=== PATIENT | female | born 1970 | race Caucasian/White ===

== ENCOUNTER → 2017-08-01 | Day surgery (SDC) | payer BC ==
[2017-07-30 16:57] LABS: Absolute Monocytes 0.7 K/uL (0.1-1.3); Absolute Neutrophil 4.3 K/uL (1.8-8.0); Basophils % 0.6 % (0-1.3); Eosinophils % 2.4 % (0-4.4); Hematocrit 29.6 % (36.0-45.0); MCH 20.1 pg (27.0-35.0); MPV 8.8 fL (7.6-11.3); Monocytes % 9.2 % (3.3-12.3); RBC Red Blood Cell Count 4.48 M/uL (3.86-4.86)
[2017-07-30 16:58] LABS: Urine Appearance CLEAR; Urine Blood 2+ (NEG); Urine Color YELLOW; Urine Glucose NEGATIVE (NEG); Urine Protein NEGATIVE (NEG); Urine Specific Gravity >=1.030 (1.005-1.030)
[2017-07-30 17:02] LABS: Urine Microscopic Reflex ORDER UMIC
[2017-07-30 17:12] LABS: Urine Bilirubin 1+ (NEG)
[2017-07-30 17:24] LABS: Potassium 3.7 mEq/L (3.6-5.0)
[2017-07-30 17:34] LABS: Urine Bacteria <20 /HPF (<20); Urine Culture Reflex Order REFLEXED; Urine RBC <5 /HPF (NONE SEEN)
[2017-07-30 17:50] LABS: Anisocytosis 3+; Blood Morphology Comment NOTED (NOT SEEN); Hypochromasia 1+; Platelet Estimate ADEQ; Urine White Blood Cell Casts OK
[~2017-08-01] MED LIST: ALBUTEROL 2.5 MG/3 ML NEB SOL ONE; CEFAZOLIN/SWI 1gm 1 GM/10 ML SYR ONE; DEXAMETHASONE 10 MG/ML VIAL ONE; FENTANYL CITR 100 MCG/2 ML ONE; FENTANYL CITR 250 MCG/5 ML ONE; GLYCOPYRROLATE 0.2 MG/ML SYR ONE; KETOROLAC 30 MG/ML INJ ONE; LIDOCAINE 2% MPF 5 ML VIAL ONE; MEPERIDINE HCL 25 MG/0.5 ML ONE; MEPERIDINE HCL 50 MG/ML AMP ONE; MIDAZOLAM HCL 2 MG/2 ML INJ ONE; ONDANSETRON 4 MG/2 ML VIAL ONE; PROPOFOL 200 MG/20 ML VIAL IV ONE; ROCURONIUM 50 MG/5 ML VIAL IV ONE; Ringers Lactate 1,000 ML IV ONE; SCOPOLAMINE HYDROBROMIDE PATCH TD ONE
[2017-08-01 06:28] LABS: Specific Gravity 1.025 (1.005-1.030)
[2017-08-01] MEDS: CEFAZOLIN/SWI 2gm 2 GM/20 ML SYR IV SCH ×2 (07:27→08:20)
[2017-08-01] MEDS: NA CHLORIDE 0.9% 1,000 ML ONE ×2 (07:28→08:20)
[2017-08-01] MEDS: MORPHINE 10 MG/ML VIAL ONE ×5 (12:31→13:04)
[2017-08-01 16:15] VITALS: BP 132/84; TEMP 98; O2SAT 97
--- NOTE | 2017-08-01 22:57 | OP ---
Date of Procedure: 08/01/2017 Surgeon: Evita Bob MD [employer] Laborer: Tiffani Ulloa. Preoperative Diagnoses: Heavy menstrual bleeding, fibroids, anemia. Postoperative Diagnoses: Heavy menstrual bleeding, fibroids, anemia. Procedures Performed: Total laparoscopic hysterectomy, bilateral salpingectomy, right oophorectomy, cystoscopy. Anesthesia: General. Estimated Blood Loss: 100. Specimens: Uterus bilateral tubes and right ovary. Complications: No complications. Drains: No drains. Condition: Stable. Indications: The patient is a 47-year-old with heavy bleeding, found to have fibroids. Her fibroids had grown from 3.5 cm to almost 7 cm over the period of 4 years. She has been having increasing ble eding and she was seen in the ER for severe anemia and transfused. She has been sampled and there wa s no evidence of any atypia or malignancy. She received a Depo shot at the ER and still continues to bleed with all the heavy bleeding has resolved. So, offered Depot medroxyprogesterone on a long-ter m basis, myomectomy, uterine artery embolization, and hysterectomy. After discussing benefits and ri sks, recurrence rates of her problem after all these and very small risk of leiomyosarcoma, proceeded to consent the patient for a laparoscopic hysterectomy, bilateral salpingectomy, possible BSO as nee ded. Procedure In Detail: After informed consent was verified, the patient was taken to the OR, placed in a supine fashion on the operating table. After general anesthesia was given, she was placed in a do rsal lithotomy position. Ancef 2 g were given preop and SCDs were started. After the patient was ex amined, uterus was found to be about 12-week size with good mobility. However, the patient had very small pelvis with a narrow vagina, so plan was to morcellate in a bag through an abdominal incision. Abdomen, vulva, vagina, and perineum were prepped and draped in a sterile fashion. Rivera was placed to drain the bladder and a large VCare introduced into the uterus and fixed in place. This area was then draped. Rivera attached for retrograde filling. A 1 cm infraumbilical incision was made with the scalpel using the open laparoscopy technique. Fasci a was incised and tagged. Domingo introduced. Site of entry was checked and was normal. Liver and g allbladder appeared to be unremarkable. Omentum and upper abdominal surfaces were unremarkable. 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 In the pelvic cavity as well, there were adhesions of the colon to the right ovary, extremely dense and also to the left lateral wall. A 10 mm suprapubic and two 5 mm right and left lower quadra nt ports were placed under direct vision. Thorough evaluation of the pelvic cavity was done. There was no evidence of any endometriosis. As the adhesions were seen, sharp scissors were taken and were used to take down the adhesions of the ovary from the colon and then bipolar LigaSure was also used for hemostasis. Once all the adhesions were taken down, then ovary was inspected, completely unremar kable. The left tube also had some adhesions. These were taken down as well. The right ovary and t ube were completely free. The large fibroid was obstructing the view of the posterior cul-de-sac, ho wever there were no cul-de-sac adhesions. Once this was detected, then hysterectomy was started. Th e utero-ovarian ligament, mesosalpinx, round ligaments were all taken down. The broad ligament was t aken down by opening up the anterior and posterior leaf. The posterior was taken to the level of the left uterosacral. The lateral wall was dissected. The broad ligament was thinned out and the vesse ls were isolated. Anteriorly, the bladder flap was taken down all the way to the opposite side. On the right side, the utero-ovarian ligament, the mesosalpinx tube, and round ligaments were all taken down. The 2 leaves of the broad ligament were opened up and dissected to the right uterosacral poste riorly and anteriorly connected the bladder flap. On the left side, before the round ligament was ta derrek down, the tube was taken down since it was in the way. The left tubal specimen was handed out for permanent pathology. The bladder flap was created by opening up with a monopolar. Vesicovaginal space was entered and the bladder was pushed down inferiorly. We went on to create windows on both sides for vessels to be ta derrek down. Bipolar basket tip was then used to take the vessels. Then, the LigaSure was used to caut erize and cut, first on the right side, then the cardinal ligaments were also taken down and cup was well visualized on the opposite side, similar dissection was performed and after all the vessels and the cardinal ligaments were taken down, there was an excellent view of the entire circumference. So, a monopolar cautery was used to perform a circumferential colpotomy. Uterus was detached, placed in the right lower quadrant. Then, there was a small fibroid about 3 cm anterior right lateral. This myoma had to be taken down with the help of the LigaSure before the hysterectomy was done and the spe cimen as well as the right ovary that was removed due to the obstruction of vision and difficulty to get to the right uterine pedicle was done and these 2 specimens were then placed in a bag, placed thr ough the 10-mm port. These were attempted to be pulled out through the camera port; however, it was difficult, so they were pulled out vaginally in the bag. The vaginal closure was done after thorough irrigation and suction were performed with 5 interrupted 0 Vicryl sutures and 2 simple on both ends and 3 [id number]-icidm in the middle. There were excellent hemostasis and good support. The tube on the right side was also taken down completely and handed o ff for permanent pathology. The left ovary was intact and was well vascularized. Cystoscopy was performed with a 17-Sami sheat h and 30-degree lens using normal saline for distention medium. There were good streams of urine fro m both ureteric orifices. No evidence of any trauma to the bladder above the level of the trigone at the base and the dome. The cystoscope was removed. There was a tiny laceration, periurethral, like ly at the time of pulling the VCare cup out while the specimen was still in. This appeared to be hem ostatic, so it was just left alone. The bag was introduced through the suprapubic port and it was opened up. The specimen placed inside the bag and the rim pulled out. All the trocars were removed under direct vision. There was no trau ma here. At the umbilicus, the fascia was closed with the 0 Vicryl in a hmbhxr-eg-egwfg fashion. Banks bcutaneous was brought together with another simple 0 Vicryl stitch. All skin incisions closed with katherin at the suprapubic port. The skin incision and fascial incision were extended to a 6-cm incis ion. Then, the morcellation was done of the uterus without any problems. It came out in several pie erwin, however no disruption in the bag and the bag was removed. The fascia was closed with the help o f a 0 Vicryl in a continuous running fashion and subcutaneous tissue was brought together with interr upted 0 Vicryl stitches and skin closed with katherin. Rivera was out. No vaginal sponges or bulb. I nstrument, needle, and sponge counts were done and were correct at the end of the case. The patient tolerated the procedure well. She was recovered from anesthesia in the OR and taken to PACU in a sta ble condition. Since her EBL was only 100, no need for any further transfusion. She will continue t o take iron t.i.d. Her hemoglobin was 9 g preop. ALICIA/IDALMIS Voice ID: [id number] Report ID: [id number]
== END ==
LOC: OR 06:11
PROVIDERS: ATTEND Obstetrics & Gynecology
PROC: 0UT04ZZ Resection of Right Ovary, Percutaneous Endoscopic Approach (ICD-10-PCS; 2017-08-01)
PROC: 0UT74ZZ Resection of Bilateral Fallopian Tubes, Percutaneous Endoscopic Approach (ICD-10-PCS; 2017-08-01)
PROC: 0UT94ZZ Resection of Uterus, Percutaneous Endoscopic Approach (ICD-10-PCS; principal; 2017-08-01 07:30)
DX: N92.1 Excessive and frequent menstruation with irregular cycle (principal); D25.9 Leiomyoma of uterus, unspecified; D64.9 Anemia, unspecified; I10 Essential (primary) hypertension; M79.7 Fibromyalgia; G47.33 Obstructive sleep apnea (adult) (pediatric); E66.9 Obesity, unspecified; M19.90 Unspecified osteoarthritis, unspecified site; F41.9 Anxiety disorder, unspecified; F17.210 Nicotine dependence, cigarettes, uncomplicated; Z91.040 Latex allergy status; Z80.1 Family history of malignant neoplasm of trachea, bronchus and lung; Z83.3 Family history of diabetes mellitus; Z82.3 Family history of stroke
CPT/HCPCS: 36415; 80048; 81003; 81015; 81025; 85025; 86850; 86900; 86901; 87077; 87086; 87088; 87186; 88305; 88307; 94640; J0690; J1100; J2175; J2250; J2405; J3010; J7030

== ENCOUNTER 2023-03-13 06:03 | Observation (INO) | payer OTHER ==
[2023-03-11 13:36] LABS: Absolute Lymphocytes (CBC) 2.3 K/uL (0.7-4.9); Hematocrit 35.3 % (36.0-45.0); Lymphocytes % 36.9 % (15.3-44.8); MCV 79.1 fL (80-100); MPV 9.1 fL (7.6-11.3); Platelets 219 thou/uL (152-406); RBC Red Blood Cell Count 4.47 M/uL (3.86-4.86)
[2023-03-11 13:40] LABS: Protime INR 1.01
[2023-03-11 13:47] LABS: Potassium 4.1 mEq/L (3.5-5.1)
--- NOTE | 2023-03-11 13:47 | RAD REPORT ---
EXAM DESCRIPTION: RAD - Chest Pa And Lat (2 Views) - 03/11/2023 1:39 pm CLINICAL HISTORY: Pre op pending total knee Chest pain. TECHNIQUE: PA and lateral views of the chest were obtained. FINDINGS: The lungs are hyperexpanded compatible with COPD. The heart is upper limit of normal in si ze. No fracture or aggressive bony process. IMPRESSION: COPD without acute process identified. The USPSTF recommends annual screening for lung cancer with low-dose CT (LDCT) in adults aged 50 to 80 years who have a 20 pack-year smoking history and currently smoke or have quit within the past 15 years.
[2023-03-13] MEDS ORDERED: CEFAZOLIN SODIUM 2 GM/VIAL ONE (06:41)
[2023-03-13] MEDS ORDERED: NA CHLORIDE 0.9% 1,000 ML ONE (06:41)
[2023-03-13] MEDS ORDERED: GABAPENTIN 100 MG CAP ONE (06:45)
[2023-03-13] MEDS ORDERED: Oxycodone HCl/Acetaminophen 5/325 MG TAB ONE (06:45)
[2023-03-13] MEDS ORDERED: ACETAMINOPHEN 500 MG TAB ONE (06:46)
[2023-03-13] MEDS ORDERED: TRANEXAMIC ACID 1,000 MG/10 ML VIAL IV ONE ×2 (07:38→08:24)
[2023-03-13] MEDS ORDERED: FENTANYL CITR 100 MCG/2 ML ONE ×2 (07:44→08:07)
[2023-03-13] MEDS ORDERED: LIDOCAINE 1% MPF 5 ML VIAL ONE (07:44)
[2023-03-13] MEDS ORDERED: DEXMEDETOMIDINE HCL 200 MCG/2 ML VIAL ONE (07:45)
[2023-03-13] MEDS ORDERED: EPINEPHRINE/PF 1 MG/ML AMP ONE (07:45)
[2023-03-13] MEDS ORDERED: MAGNESIUM SULFATE 1 gm IVPB 1 GM/100 ML BAG IV ONE (07:45)
[2023-03-13] MEDS ORDERED: propofoL 200 MG/20 ML VIAL IV ONE (08:30)
[2023-03-13] MEDS ORDERED: KETAMINE HCL IN 0.9 % NACL 50 MG/5 ML SYRINGE IV ONE (08:39)
[2023-03-13] MEDS ORDERED: KETOROLAC 30 MG/ML INJ ONE (08:39)
[2023-03-13] MEDS ORDERED: NS 0.9% VIAL 20 ML ONE (08:53)
[2023-03-13] MEDS ORDERED: GLYCOPYRROLATE 0.2 MG/ML SYR ONE (09:14)
[2023-03-13] MEDS ORDERED: NS 0.9% VIAL 10 ML ONE (10:33)
[2023-03-13] MEDS ORDERED: ACETAMINOPHEN 325 MG TABLET PO PRN (10:51)
[2023-03-13] MEDS ORDERED: ONDANSETRON 4 MG/2 ML VIAL IV PRN (10:51)
[2023-03-13] MEDS ORDERED: DOCUSATE NA 100 MG CAP PO PRN (10:51)
--- NOTE | 2023-03-13 10:51 | P.BOP ---
Preoperative diagnosis: right knee osteoarthritis Postoperative diagnosis: same Primary procedure: right total knee arthroplasty Medical Staff Manager: NONE,NONE Estimated blood loss: 50 cc Specimen: right knee bone remnants Findings: see dictation Anesthesia: General Complications: None Implants: [employer] Lexx Persona 6 CR femur, D tibia, 10 CR poly, 29 patella Fluids & blood products: per anesthesia record; TT: 84 mins @ 300 mmHg Transferred to: Recovery Room Condition: Good
[2023-03-13] MEDS ORDERED: TRAMADOL HCL 50 MG TAB PO PRN (10:55)
[2023-03-13] MEDS: HYDROMORPHONE HCL 1 MG/ML INJ ONE ×4 (11:27→12:03)
--- NOTE | 2023-03-13 11:38 | RAD REPORT ---
EXAM DESCRIPTION: RAD - Knee Right 2 View - 03/13/2023 11:30 am CLINICAL HISTORY: Post Op COMPARISON: No comparisons TECHNIQUE: Right knee, 3 views. FINDINGS: No fracture, dislocation or periosteal reaction.No joint effusion seen. Postoperative jansen ges of right total knee arthroplasty. Components in satisfactory alignment. An adjacent soft tissue g as and anterior skin katherin present. No other soft tissue abnormality. IMPRESSION: Expected postoperative changes of right total knee arthroplasty. No other abnormalities.
--- OUTSIDE RECORDS SUMMARY | 2023-03-13 11:58 | XMS REPORT | Continuity of Care Document ---
:[address] [facility] t Address [address] [place] [address] Care Team Providers Name Role Phone Asked, No Pcp Primary Care Physician Unavailable Daryl Meza Attending Clinician Unavailable [email or web address] Attending Clinician Unavailable Doctor Unassigned, [place] Attending Clinician Unavailable WILLY CHICAS Attending Clinician Unavailable Willy Callejas Attending Clinician [facility]ending [facility]ician Unavailable Alexx MIGUEL, Eddi Mcnair Attending Clinician Kia Carmen MD Attending Clinician [phone] Akil MIGUEL, Josephine Maya Attending Clinician Mike MIGUEL, Saul Tao Attending Clinician Daryl Meza MD Attending Clinician DARYL MEZA Attending Clinician Unavailable ROMINA WRIGHT Attending Clinician Unavailable ANANT HER Attending Clinician Unavailable SONIA BAE Attending Clinician Unavailable [email or web address] Admitting Clinician Unavailable KIA CARMEN Admitting Clinician Unavailable ANANT HER Admitting Clinician Unavailable Payers Payer Name Policy Type Policy Number Effective Date Expiration Date Juan Carlos MYERS [id number] 2022 ADVANTAGE O 00:00:00 Problems Condition Condition Condition Status Onset Resolution Last Treating Co mments Source Name Details Category Date Date Treatment Clinician Date Pneumonia Pneumonia Disease Active Met hodi due to due to 09-04 infectious infectious 00:00: Ho spita organism, organism, 00 l unspecifie unspecifie d d laterality laterality , , unspecifie unspecifie d part of d part of lung lung Knee pain, Knee pain, Disease Active U nivers bilateral bilateral 7-25 ity of 00:00: Medical Branch Knee pain, Knee pain, Disease Active U nivers bilateral bilateral 7-25 ity of 00:00: Medical Branch Hypertensi Hypertensi Disease Active U nivers on on 11-17 ity of 00:00: Medical Branch Anxiety Anxiety Disease Active Univers 11-17 ity of 00:00: Medical Branch Allergies, Adverse Reactions, Alerts Allergy Allergy Status Severity Reaction(s) Onset Inactive Treating Comm ents Source Name Type Date Date Clinician Adhesive Propensi Active Rash 2015-04 Univer s ty to 1-07 ity of adverse 00:00: [place] reaction 00 Medical s Branch ADHESIVE Drug Active Rash 2015-04 Univers Class 05-05 ity of 00:00: Medical Branch Adhesive Propensi Active Rash 2015-04 Univer s ty to 1-07 ity of adverse 00:00: [place] reaction 00 Medical s Branch Adhesive Propensi Active Rash 2015-04 Univer s ty to 1-07 ity of adverse 00:00: [place] reaction 00 Medical s Branch Social History Social Habit Start Date Stop Date Quantity Comments Source [facility] Alcohol intake 2022-09-28 2022-09-28 0 /d University of 00:00:00 00:00:00 [facility] History of Social 2022-09-06 2022-09-[address] function 00:00:00 00:00:00 Hospital Cigarettes smoked 2022-09-04 2022-09-[address] current (pack per 00:00:00 00:00:00 Hospita l day) - Reported Cigarette 2022-09-04 2022-09-04 [facility] 00:[facility] 00:00:00 Hospital Exposure to 2022-04-02 2022-04-12 Not sure [facility]-CoV-2 (event) 00:00:00 14:38:00 [facility] Tobacco use and 2022-04-12 2022-04-12 Smokeless Universit y of exposure 00:00:00 00:00:00 [facility] [place] History of tobacco 2020-08-27 Passive smoker [facility] use 00:[facility] Sex Assigned At [birth year] [facility] Smoking Status Start Date Stop Date Source Ex-smoker 2022-09-04 00:00:00 2022-09-04 [facility] 2022-04[facility]12 00[facility]00[facility]00 [facility] Ordered Filled Start Stop Current Ordering Indication Dosage Frequency Signature Comments Components Source Medication Medication Date Date Medication? Clinician (SIG) Name Name triamcinolo 2022- No [id number] 80mg Univers ne 09-28 ity of acetonide 15:15: 14:13 [place] (KENALOG) 00 :00 Medical injection Branch 80 mg triamcinolo 2022- No [id number] 80mg 80 mg, Univers ne 09-28 Intramuscu ity of acetonide 15:15: 14:13 [place]CE[place] 00 :00 1 dose, On Medi malissa injection 09/28/22 Bran ch 80 mg at 1015, Routine triamcinolo 2022- No [id number] 80mg Univers ne 09-28 ity of acetonide 15:15: 14:13 [place] (KENALOG) 00 :00 Medical injection Branch 80 mg triamcinolo 2022- No [id number] 80mg 80 mg, Univers ne 09-28 Intramuscu ity of acetonide 15:15: 14:13 [place]CE[place] ([place]) 00 :00 1 dose, On Medi malissa injection 09/28/22 Bran ch 80 mg at 1015, Routine azithromyci 2023-0 Yes 250mg QD Take 1 Met hodi n 5-[address] (ZITHROMAX) 00:00: (250 mg Hos carlos 250 MG 00 total) by l tablet mouth daily. HYDROcodone 2023-0 Yes [id number] 1{tbl} Q8H Take 1 M ethodi -acetaminop 5-[address] hen (Moasis) 00:00: mouth Hospi ta 5-325 mg 00 every 8 l per tablet (eight) hours as needed for moderate pain or severe pain .acute pain. Max Daily Amount: 3 tablets codeine-gua 2023-0 Yes [id number] 5mL Q.[id number] Take 5 mL Methodi ifenesin 5-12 [id number] [address] mouth [address] (GUAIFENESI 00:00: 3D (three) Hos carlos N AC) 00 times a l 10-100 mg/5 day as mL liquid needed for cough .acute pain. azithromyci 2023-0 Yes 250mg QD Take 1 Met hodi n 5-[address] (ZITHROMAX) 00:00: (250 mg Hos carlos 250 MG 00 total) by l tablet mouth daily. HYDROcodone 2023-0 Yes [id number] 1{tbl} Q8H Take 1 M ethodi -acetaminop 5-[address] hen (Moasis) 00:00: mouth Hospi ta 5-325 mg 00 every 8 l per tablet (eight) hours as needed for moderate pain or severe pain .acute pain. Max Daily Amount: 3 tablets codeine-gua 2023-0 Yes [id number] 5mL Q.[id number] Take 5 mL Methodi ifenesin 5-12 [id number] mouth [address] (GUAIFENESI 00:00: 3D (three) Hos carlos N AC) 00 times a l 10-100 mg/5 day as mL liquid needed for cough .acute pain. HYDROcodone 2023-0 Yes [id number] 1{tbl} Q6H Take 1 M ethodi -acetaminop 5-[address] hen (Moasis) 00:00: mouth Hospi ta 7.5-325 mg 00 every 6 l per tablet (six) hours as needed for moderate pain .acute pain. Max Daily Amount: 4 tablets HYDROcodone 2022-0 Yes [id number] 1{tbl} Q6H Take 1 M ethodi -acetaminop 5-[address] hen ([place]) 00:00: mouth Hospi ta 7.5-325 mg 00 every 6 l per tablet (six) hours as needed for moderate pain .acute pain. Max Daily Amount: 4 tablets methocarbam 2022-0 2023- No 500mg Q.25D Take 1 M ethodi oL 5-11 06-[address] (ROBAXIN) 00:00: 04:59 (500 mg Hosp angela 500 MG 00 :00 total) by l tablet mouth 4 (four) times a day for 30 days. methocarbam 2023-0 2022- No 500mg Q.25D Take 1 M ethodi oL 5-11 06-[address] (ROBAXIN) 00:00: 04:59 (500 mg Hosp angela 500 MG 00 :00 total) by l tablet mouth 4 (four) times a day for 30 days. codeine-gua 2022-0 2022- [place] [id number] 5mL Q6H Take 5 mL Methodi ifenesin 5-11 05-[address] (GUAIFENESI 00:00: 04:59 every 6 Ho spita N AC) 00 :00 (six) l 10-100 mg/5 hours for mL liquid 7 days .acute pain. codeine-gua 3-0 2022- No [id number] 5mL Q6H Take 5 mL Methodi ifenesin 5-11 05-[address] (GUAIFENESI 00:00: 04:59 every 6 Ho spita N AC) 00 :00 (six) l 10-100 mg/5 hours for mL liquid 7 days .acute pain. albuterol 2022-0 Yes 2 puffs q Met hodi (PROAIR 5-[address] HFA) 90 00:00: two days, Hospi ta mcg/actuati 00 then prn l on inhaler albuterol 2022-0 Yes 2 puffs q Met hodi (PROAIR 5-[address] HFA) 90 00:00: two days, Hospi ta mcg/actuati 00 then prn l on inhaler fluticasone 2022-2022- No 100ug QD 2 sprays Methodi propionate - 05-18 ([address] (FLONASE) 00:00: 04:59 total) by Ho spita 50 00 :00 Each Nare l mcg/actuati route on nasal daily for spray 10 days. fluticasone 2022-0 2022- No 100ug QD 2 sprays Methodi propionate 5- 05-18 ([address] (FLONASE) 00:00: 04:59 total) by Ho spita 50 00 :00 Each Nare l mcg/actuati route on nasal daily for spray 10 days. cefdinir 2022-2022- No 300mg Q.5D Take 1 Metho di (OMNICEF) 5- 05-[address] 300 MG 00:00: 04:59 (300 mg Hospita capsule 00 :00 total) by l mouth 2 (two) times a day for 7 days. cefdinir 2022-2022- No 300mg Q.5D Take 1 Metho di (OMNICEF) 5-10 31-[address] 300 MG 00:00: 04:59 (300 mg Hospita capsule 00 :00 total) by l mouth 2 (two) times a day for 7 days. ibuprofen 2022- No 600mg Q8H Take 1 Meth natalia (ADVIL) 600 09-02-[address] MG tablet 00:00: 04:59 (600 mg Hosp angela 00 :00 total) by l mouth every 8 (eight) hours as needed for mild pain for up to 5 days. HYDROcodone 2022- No [id number] 1{tbl} Q8H Take 1 Methodi -acetaminop 09-02-[address] hen (NORCO) 00:00: 04:59 mouth Hosp angela 5-325 mg 00 :00 every 8 l per tablet (eight) hours as needed for moderate pain for up to 5 days .acute pain. Max Daily Amount: 3 tablets ibuprofen 2022-0 2022- No 600mg Q8H Take 1 Meth [place] (ADVIL) 600 09-02 05-[address] MG tablet 00:00: 04:59 (600 mg Hosp angela 00 :00 total) by l mouth every 8 (eight) hours as needed for mild pain for up to 5 [place] [id number] 1{tbl} Q8H Take 1 Methodi -acetaminop 09-[address] [facility] (NORCO) 00:00: 04:59 mouth Hosp angela 5-325 mg 00 :00 every 8 l per tablet (eight) hours as needed for moderate pain for up to 5 days .acute pain. Max Daily Amount: 3 tablets azithromyci No 250mg QD Take 1 Me thodi n 09-[address] (Zithromax 00:00: 00:00 (250 mg Hos carlos Z-Mark) 250 00 :00 total) by l MG tablet mouth daily. Take 2 tablets the first day, then 1 tablet daily for 4 days. azithromyci No 250mg QD Take 1 Me thodi n 09-[address] (Zithromax 00:00: 00:00 (250 mg Hos carlos Z-Mark) 250 00 :00 total) by l MG tablet mouth daily. Take 2 tablets the first day, then 1 tablet daily for 4 days. triamcinolo 2021-04- No [id number] 40mg Univers ne 06-13 9109 ity of acetonide 22:15: 21:15 [place] (KENALOG) 00 :00 Medical injection Branch 40 mg triamcinolo 2021-04- No [id number] 40mg 40 mg, Univers ne 06-13 9109 Intramuscu ity of acetonide 22:15: 21:15 [place]CE, [place] ([place]) 00 :00 1 dose, On Medi malissa injection [place] Branch 40 mg 04/12/22 at 1615, Routine triamcinolo 2021-04- No [id number] 40mg Univers ne 06-13- 9109 ity of acetonide 22:15: 21:15 [place] (KENALOG) 00 :00 Medical injection Branch 40 mg triamcinolo 2021-04- No [id number] 40mg 40 mg, Univers ne 06-13 9109 Intramuscu ity of acetonide 22:15: 21:15 lar, ONCE, [place] (KE[place]LOG) 00 :00 1 dose, On Medi malissa injection [place] Branch 40 mg 04/12/22 at 1615, Routine IBUPROFEN 2022-0 Yes [id number] TAKE 1 Univers 800 mg 8-05 TABLET BY ity of tablet 00:00: MOUTH 00 THREE Medical TIMES A Branch DAY WITH MEALS IBUPROFEN 2022-0 Yes [id number] TAKE 1 Univers 800 mg 8-05 TABLET BY ity of tablet 00:00: MOUTH 00 THREE Medical TIMES A Branch DAY WITH MEALS IBUPROFEN 2022-0 Yes [id number] TAKE 1 Univers 800 mg 8-05 TABLET BY ity of tablet 00:00: MOUTH 00 THREE Medical TIMES A Branch DAY WITH MEALS IBUPROFEN 2022-0 Yes [id number] TAKE 1 Univers 800 mg 8-05 TABLET BY ity of tablet 00:00: MOUTH 00 THREE Medical TIMES A Branch DAY WITH MEALS IBUPROFEN 2022-0 Yes [id number] TAKE 1 Univers 800 mg 8-05 TABLET BY ity of tablet 00:00: MOUTH 00 THREE Medical TIMES A Branch DAY WITH MEALS IBUPROFEN 2022-0 Yes [id number] TAKE 1 Univers 800 mg 8-05 TABLET BY ity of tablet 00:00: MOUTH 00 THREE Medical TIMES A Branch DAY WITH MEALS IBUPROFEN 2022-0 Yes [id number] TAKE 1 Univers 800 mg 8-05 TABLET BY ity of tablet 00:00: MOUTH 00 THREE Medical TIMES A Branch DAY WITH MEALS IBUPROFEN 2022-0 Yes [id number] TAKE 1 Univers 800 mg 8-05 TABLET BY ity of tablet 00:00: MOUTH 00 THREE Medical TIMES A Branch DAY WITH MEALS IBUPROFEN 2022-0 Yes [id number] TAKE 1 Univers 800 mg 2-07 TABLET BY ity of tablet 00:00: MOUTH 00 THREE Medical TIMES A Branch DAY WITH MEALS IBUPROFEN 2022-0 Yes [id number] TAKE 1 Univers 800 mg 2-07 TABLET BY ity of tablet 00:00: MOUTH 00 THREE Medical TIMES A Branch DAY WITH MEALS IBUPROFEN 2022-0 Yes [id number] TAKE 1 Univers 800 mg 2-07 TABLET BY ity of tablet 00:00: MOUTH 00 THREE Medical TIMES A Branch DAY WITH MEALS IBUPROFEN 2022-0 2022- No [id number] TAKE 1 Univers 800 mg 2-07 08-05 TABLET BY ity of tablet 00:00: 00:00 MOUTH [place] 00 :00 THREE Medical TIMES A Branch DAY WITH MEALS diazePAM 5 2021-0 Yes [id number] TAKE 1 U nivers mg tablet 8-19 TABLET BY ity o f 00:00: MOUTH [place] 00 TWICE A Medical DAY Branch NEEDED FOR ANXIETY diazePAM Yes [id number] TAKE 1 U nivers mg tablet 8-19 TABLET BY ity o f 00:00: MOUTH [place] 00 TWICE A Medical DAY Branch NEEDED FOR ANXIETY diazePAM Yes [id number] TAKE 1 U nivers mg tablet 8-19 TABLET BY ity o f 00:00: MOUTH [place] 00 TWICE A Medical DAY Branch NEEDED FOR ANXIETY diazePAM Yes [id number] TAKE 1 U nivers mg tablet 8-19 TABLET BY ity o f 00:00: MOUTH [place] 00 TWICE A Medical DAY Branch NEEDED FOR ANXIETY diazePAM Yes [id number] TAKE 1 U nivers mg tablet 8-19 TABLET BY ity o f 00:00: MOUTH [place] 00 TWICE A Medical DAY Branch NEEDED FOR ANXIETY diazePAM Yes [id number] TAKE 1 U nivers mg tablet 8-19 TABLET BY ity o f 00:00: MOUTH [place] 00 TWICE A Medical DAY Branch NEEDED FOR ANXIETY diazePAM Yes [id number] TAKE 1 U nivers mg tablet 8-19 TABLET BY ity o f 00:00: MOUTH [place] 00 TWICE A Medical DAY Branch NEEDED FOR ANXIETY diazePAM Yes [id number] TAKE 1 U nivers mg tablet 8-19 TABLET BY ity o f 00:00: MOUTH [place] 00 TWICE A Medical DAY Branch NEEDED FOR ANXIETY diazePAM Yes [id number] TAKE 1 U nivers mg tablet 8-19 TABLET BY ity o f 00:00: MOUTH [place] 00 TWICE A Medical DAY Branch NEEDED FOR ANXIETY diazePAM Yes [id number] TAKE 1 U nivers mg tablet 8-19 TABLET BY ity o f 00:00: MOUTH [place] 00 TWICE A Medical DAY Branch NEEDED FOR ANXIETY diazePAM Yes [id number] TAKE 1 U nivers mg tablet 8-19 TABLET BY ity o f 00:00: MOUTH [place] 00 TWICE A Medical DAY Branch NEEDED FOR ANXIETY diazePAM Yes [id number] TAKE 1 U nivers mg tablet 8-19 TABLET BY ity o f 00:00: MOUTH [place] 00 TWICE A Medical DAY Branch NEEDED FOR ANXIETY losartan 50 2020-0 Yes [id number] 50mg Take 1 Univers mg tablet 8-05 tablet by ity o f 00:00: mouth [place] 00 daily. Medical Branch losartan 50 2020-0 Yes [id number] 50mg Take 1 Univers mg tablet 8-05 tablet by ity o f 00:00: mouth [place] 00 daily. Medical Branch losartan 50 2020-0 Yes [id number] 50mg Take 1 Univers mg tablet 8-05 tablet by ity o f 00:00: mouth [place] 00 daily. Medical Branch losartan 50 2020-0 Yes [id number] 50mg Take 1 Univers mg tablet 8-05 tablet by ity o f 00:00: mouth [place] 00 daily. Medical Branch losartan 50 2020-0 Yes [id number] 50mg Take 1 Univers mg tablet 8-05 tablet by ity o f 00:00: mouth [place] 00 daily. Medical Branch losartan 50 2020-0 Yes [id number] 50mg Take 1 Univers mg tablet 8-05 tablet by ity o f 00:00: mouth [place] 00 daily. Medical Branch losartan 50 2020-0 Yes [id number] 50mg Take 1 Univers mg tablet 8-05 tablet by ity o f 00:00: mouth [place] 00 daily. Medical Branch losartan 50 2020-0 Yes [id number] 50mg Take 1 Univers mg tablet 8-05 tablet by ity o f 00:00: mouth [place] 00 daily. Medical Branch losartan 50 2020-0 Yes [id number] 50mg Take 1 Univers mg tablet 8-05 tablet by ity o f 00:00: mouth [place] 00 daily. Medical Branch losartan 50 2020-0 Yes [id number] 50mg Take 1 Univers mg tablet 8-05 tablet by ity o f 00:00: mouth [place] 00 daily. Medical Branch losartan 50 2020-0 Yes [id number] 50mg Take 1 Univers mg tablet 8-05 tablet by ity o f 00:00: mouth [place] 00 daily. Medical Branch losartan 50 2020-0 Yes [id number] 50mg Take 1 Univers mg tablet 8-05 tablet by ity o f 00:00: mouth [place] 00 daily. Medical Branch IBUPROFEN 2020-0 Yes [id number] TAKE 1 Univers 800 mg 7-14 TABLET BY ity of tablet 00:00: MOUTH [place] 00 THREE Medical TIMES A Branch DAY WITH MEALS IBUPROFEN 2020-0 2021- No [id number] TAKE 1 Univers 800 mg 7-14 06-05 TABLET BY ity of tablet 00:00: 00:00 MOUTH [place] 00 :00 THREE Medical TIMES A DAY WITH MEALS Immunizations Ordered Filled Date Status Comments Source Immunization Name Immunization Name Zoster Vaccine 2020-11-13 Completed University of Recombinant 00:00:00 [facility] Zoster Vaccine 2020-11-13 Completed University of Recombinant 00:00:00 [facility] Zoster Vaccine 2020-11-13 Completed University of Recombinant 00:00:00 [facility] Zoster Vaccine 2020-11-13 Completed University of Recombinant 00:00:00 [facility] Zoster Vaccine 2020-11-13 Completed University of Recombinant 00:00:00 [facility] Zoster Vaccine 2020-11-13 Completed University of Recombinant 00:00:00 [facility] Zoster Vaccine 2020-11-13 Completed University of Recombinant 00:00:00 [facility] Zoster Vaccine 2020-11-13 Completed University of Recombinant 00:00:00 [facility] Zoster Vaccine 2020-11-13 Completed University of Recombinant 00:00:00 [facility] Zoster Vaccine 2020-11-13 Completed University of Recombinant 00:00:00 [facility] SARS-COV-2 COVID-19 2020-07-16 Completed Unive rsity of PFIZER VACCINE 00:00:00 [facility] [place] [facility] SARS-COV-2 COVID-19 2020-07-16 Completed Unive rsity of PFIZER VACCINE 00:00:00 [facility] [place] [facility] SARS-COV-2 COVID-19 2020-07-16 Completed Unive rsity of PFIZER VACCINE 00:00:00 [facility] [place] [facility] SARS-COV-2 COVID-19 2020-07-16 Completed Unive rsity of PFIZER VACCINE 00:00:00 [facility] [place] [facility] SARS-COV-2 COVID-19 2020-07-16 Completed Unive rsity of PFIZER VACCINE 00:00:00 [facility] [place] [facility] SARS-COV-2 COVID-19 2020-07-16 Completed Unive rsity of PFIZER VACCINE 00:00:00 [facility] [place] [facility] SARS-COV-2 COVID-19 2020-07-16 Completed Unive rsity of PFIZER VACCINE 00:00:00 [facility] [place] [facility] SARS-COV-2 COVID-19 2020-07-16 Completed Unive rsity of PFIZER VACCINE 00:00:00 [facility] SARS-COV-2 COVID-19 2020-07-16 Completed Unive rsity of PFIZER VACCINE 00:00:00 [place] [facility] SARS-COV-2 COVID-19 2020-07-16 Completed Unive rsity of PFIZER VACCINE 00:00:00 [facility] [place] [facility] SARS-COV-2 COVID-19 2020-06-25 Completed Unive rsity of PFIZER VACCINE 00:00:00 [place] [facility] SARS-COV-2 COVID-19 2020-06-25 Completed Unive rsity of PFIZER VACCINE 00:00:00 [facility] [place] [facility] SARS-COV-2 COVID-19 2020-06-25 Completed Unive rsity of PFIZER VACCINE 00:00:00 [facility] [place] [facility] SARS-COV-2 COVID-19 2020-06-25 Completed Unive rsity of PFIZER VACCINE 00:00:00 [facility] [place] [facility] SARS-COV-2 COVID-19 2020-06-25 Completed Unive rsity of PFIZER VACCINE 00:00:00 [facility] [place] [facility] SARS-COV-2 COVID-19 2020-06-25 Completed Unive rsity of PFIZER VACCINE 00:00:00 [place] [facility] SARS-COV-2 COVID-19 2020-06-25 Completed Unive rsity of PFIZER VACCINE 00:00:00 [facility] [place] [facility] SARS-COV-2 COVID-19 2020-06-25 Completed Unive rsity of PFIZER VACCINE 00:00:00 [facility] [place] [facility] SARS-COV-2 COVID-19 2020-06-25 Completed Unive rsity of PFIZER VACCINE 00:00:00 [place] [facility] SARS-COV-2 COVID-19 2020-06-25 Completed Unive rsity of PFIZER VACCINE 00:00:00 [facility] [place] [facility] SARS-COV-2 COVID-19 Unknown Completed Unive rsity of PFIZER VACCINE [facility] [place] [facility] SARS-COV-2 COVID-19 Unknown Completed Unive rsity of PFIZER VACCINE [facility] Zoster Vaccine Unknown Completed [facility] SARS-COV-2 COVID-19 Unknown Completed Unive rsity of PFIZER VACCINE [facility] [place] [facility] SARS-COV-2 COVID-19 Unknown Completed Unive rsity of PFIZER VACCINE [facility] Zoster Vaccine Unknown Completed [facility] Vital Signs Vital Name Observation Time Observation Value Comments Source Body weight 2022-09-28 13:54:00 94.802 kg [facility] BMI 2022-09-28 13:54:00 38.23 kg/m2 [facility] Body weight 2022-04-12 20:41:00 94.802 kg [facility] BMI 2022-04-12 20:41:00 38.23 kg/m2 [facility] Heart rate 2022-09-06 20:59:00 65 /min [facility] Respiratory rate 2022-09-06 20:59:00 16 /min [facility] Oxygen saturation in 2022-09-06 14:31:00 99 /min [facility] Arterial blood by Pulse oximetry Systolic blood 2022-09-06 14:04:37 188 mm[Hg] [facility] pressure Diastolic blood 2022-09-06 14:04:37 84 mm[Hg] [facility] pressure Body temperature 2022-09-06 09:43:40 36.33 Yeimy [facility] Body weight 2022-09-04 05:53:00 81.647 kg [facility] BMI 2022-09-04 05:53:00 34.01 kg/m2 [facility] Body height 2022-09-02 20:29:00 154.9 cm [facility] Procedures Procedure Date / Time Performing Clinician Source Performed EXTERNAL PROVIDER RECORDS 2023-02-14 05:01:00 Doctor Heather, [facility] Name [facility] MEDICAL RELEASE/CLEARANCE 2023-01-28 05:01:00 Doctor Heather, [facility] FORMS [place] [facility] CONSENT/REFUSAL FOR 2022-09-28 13:51:23 Doctor Heather, [facility] DIAGNOSIS AND TREATMENT [place] [facility] [place] MAGNESIUM LEVEL 2022-09-06 09:22:00 Cesar Dinh Ho spital PHOSPHORUS LEVEL 2022-09-06 09:22:00 Cesar Dinh H ospital BASIC METABOLIC PANEL 2022-09-06 09:22:00 Cesar Dinh [facility] HEPATIC FUNCTION PANEL 2022-09-06 09:22:00 Cesar Dinh [facility] CBC HEMOGRAM 2022-09-06 09:22:00 Csear Dinh spital PROCALCITONIN 2022-09-06 09:22:00 Claudio Pascual [facility] spital ESTIMATED GFR 2022-09-06 09:22:00 [facility] MAGNESIUM LEVEL 2022-09-05 09:03:00 Cesar Dinh [facility] spital PHOSPHORUS LEVEL 2022-09-05 09:03:00 [facility] BASIC METABOLIC PANEL 2022-09-05 09:03:00 [facility] HEPATIC FUNCTION PANEL 2022-09-05 09:03:00 [facility] CBC HEMOGRAM 2022-09-05 09:03:[facility] 2022-09-05 09:03:00 [facility] 2022-09-05 09:03:00 [facility] STREPTOCOCCUS PNEUMONIAE 2022-09-04 19:05:00 [facility] [place] URINARY ANTIGEN LEGIONELLA URINARY 2022-09-04 19:05:00 [facility] ANTIGEN METHICILLIN-RESISTANT 2022-09-04 19:05:00 [facility] STAPHYLOCOCCUS AUREUS (MRSA), EBONIE CT CHEST W CONTRAST 2022-09-04 16:42:[address] [facility] COVID-19 QUALITATIVE 2022-09-04 13:17:00 [facility] SEDIMENTATION RATE 2022-09-04 13:16:00 [facility]-REACT[facility] PROTEIN 2022-09-04 13:16:00 [facility] PROCALCITONIN 2022-09-04 11:46:00 [facility] TROPONIN T 2022-09-04 11:46:00 Eddi Coffey [facility] LACTIC ACID LEVEL, SEPSIS 2022-09-04 11:46:00 [facility] 2X EVERY [address] HEAD WO CONTRAST 2022-09-04 10:07:13 Tu, [facility] BLOOD CULTURE, AEROBIC & 2022-09-04 08:27:00 Tu, [facility] ANAEROBIC CBC WITH PLATELET AND 2022-09-04 08:27:00 Tu, [facility] DIFFERENTIAL PROTHROMBIN TIME WITH INR 2022-09-04 08:27:00 Tu, [facility] PARTIAL THROMBOPLASTIN 2022-09-04 08:27:00 Tu, [facility] TIME (PTT) COMPREHENSIVE METABOLIC 2022-09-04 08:27:00 Tu, [facility] PANEL TROPONIN T 2022-09-04 08:27:00 Tu, [facility] NT-PROBNP 2022-09-04 08:27:00 Tu, [facility] LACTIC ACID LEVEL, SEPSIS 2022-09-04 08:27:00 Tu, [facility] - NOW AND REPEAT 2X EVERY 3 HOURS ESTIMATED GFR 2022-09-04 08:27:00 Tu, [facility] XR CHEST 1 VW PORTABLE 2022-09-04 06:16:51 Tu, [facility] ECG ED PRELIMINARY 2022-09-04 06:15:53 Tu, [facility] INTERPRETATION ECG 12-LEAD 2022-09-04 06:03:52 Tu, [facility] CT HEAD WO CONTRAST 2022-09-02 23:53:[address] [facility] CT ABDOMEN PELVIS W 2022-09-02 23:53:[address] [facility] CONTRAST RESPIRATORY PATHOGEN 2022-09-02 23:06:00 Saul Mckeon [facility] PANEL WITH COVID-19 RT-PCR MAGNESIUM LEVEL 2022-09-02 23:06:00 Saul Mckeon [facility] PHOSPHORUS LEVEL 2022-09-02 23:06:00 [facility] VENOUS BLOOD GAS 2022-09-02 23:06:00 [facility] URINE CULTURE 2022-09-02 22:11:00 [facility] URINALYSIS SCREEN AND 2022-09-02 22:06:00 [facility] MICROSCOPY, WITH REFLEX TO CULTURE XR CHEST 1 VW PORTABLE 2022-09-02 21:17:00 [facility] [place] CRITICAL CARE 2022-09-02 21:03:18 [facility] ILL/INJURED PATIENT INIT 30-74 MIN ECG ED PRELIMINARY 2022-09-02 21:03:18 [facility] INTERPRETATION HCG QUALITATIVE, SERUM 2022-09-02 20:54:00 [facility] SCREEN LACTIC ACID LEVEL, SEPSIS 2022-09-02 20:53:00 [facility] - NOW AND REPEAT 2X EVERY 3 HOURS COMPREHENSIVE METABOLIC 2022-09-02 20:53:00 [facility] PANEL CBC WITH PLATELET AND 2022-09-02 20:53:00 [facility] DIFFERENTIAL ESTIMATED GFR 2022-09-02 20:53:00 [facility] BLOOD CULTURE, AEROBIC & 2022-09-02 20:52:00 [facility] ANAEROBIC BLOOD CULTURE, AEROBIC & 2022-09-02 20:48:00 [facility] ANAEROBIC ECG 12-LEAD 2022-09-02 20:34:40 [facility] Plan of Care Planned Activity Planned Date Details Comments Source Future Scheduled 2023-02-24 Screening for [facility] Test 16:21:39 malignant neoplasm of colon (procedure) [code = 148139660] Future Scheduled 2023-02-24 Screening for [facility] Test 16:21:39 malignant neoplasm of colon (procedure) [code = 252454540] Future Scheduled 2023-02-24 Screening for [facility] Test 16:21:39 malignant neoplasm of colon (procedure) [code = 341578001] Future Scheduled 2023-02-24 Pneumococcal Vaccine: [facility] Test 16:21:39 Pediatrics (0 to 5 Years) and At-Risk Patients (6 to 64 Years) (1 - PCV) [code = Pneumococcal Vaccine: Pediatrics (0 to 5 Years) and At-Risk Patients (6 to 64 Years) (1 - PCV)] Future Scheduled 2023-02-24 Hepatitis C screening [facility] Test 16:21:39 (procedure) [code = 699598486] Future Scheduled 2023-02-24 Screening for [facility] Test 16:21:39 malignant neoplasm of cervix (procedure) [code = 133045657] Future Scheduled 2023-02-24 Screening for [facility] Test 16:21:39 malignant neoplasm of colon (procedure) [code = 045097086] Future Scheduled 2023-02-24 Screening for [facility] Test 16:21:39 malignant neoplasm of colon (procedure) [code = 544031132] Future Scheduled 2023-02-24 BREAST CANCER [facility] Test 16:21:39 SCREENING [code = BREAST CANCER SCREENING] Future Scheduled 2023-02-24 SHINGLES VACCINES (2 Met [facility] Test 16:21:39 of 2) [code = SHINGLES VACCINES (2 of 2)] Future Scheduled 2023-02-24 COVID-19 VACCINE (3 - [facility] Test 16:21:39 season) [code = COVID-19 VACCINE (3 - season)] Future Scheduled 2023-02-24 INFLUENZA VACCINE (#1) [facility] Test 16:21:39 [code = INFLUENZA VACCINE (#1)] Future Scheduled 2022-12-26 Screening for [facility] Test 04:01:18 malignant neoplasm of colon (procedure) [code = 255748443] Future Scheduled 2022-12-26 Screening for [facility] Test 04:01:18 malignant neoplasm of colon (procedure) [code = 481103140] Future Scheduled 2022-12-26 Screening for [facility] Test 04:01:18 malignant neoplasm of colon (procedure) [code = 873047799] Future Scheduled 2022-12-26 Pneumococcal Vaccine: [facility] Test 04:01:18 Pediatrics (0 to 5 Years) and At-Risk Patients (6 to 64 Years) (1 - PCV) [code = Pneumococcal Vaccine: Pediatrics (0 to 5 Years) and At-Risk Patients (6 to 64 Years) (1 - PCV)] Future Scheduled 2022-12-26 Hepatitis C screening [facility] Test 04:01:18 (procedure) [code = 528845404] Future Scheduled 2022-12-26 Screening for [facility] Test 04:01:18 malignant neoplasm of cervix (procedure) [code = 559487769] Future Scheduled 2022-12-26 Screening for [facility] Test 04:01:18 malignant neoplasm of colon (procedure) [code = 062297305] Future Scheduled 2022-12-26 Screening for [facility] Test 04:01:18 malignant neoplasm of colon (procedure) [code = 739388670] Future Scheduled 2022-12-26 BREAST CANCER [facility] Test 04:01:18 SCREENING [code = BREAST CANCER SCREENING] Future Scheduled 2022-12-26 COVID-19 VACCINE (3 - [facility] Test 04:01:18 Pfizer series) [code = COVID-19 VACCINE (3 - Pfizer series)] Future Scheduled 2022-12-26 SHINGLES VACCINES ([address] [facility] Test 04:01:18 of 2) [code = SHINGLES VACCINES (2 of 2)] Future Scheduled 2022-12-26 INFLUENZA VACCINE (#1) [facility] Test 04:01:18 [code = INFLUENZA VACCINE (#1)] Encounters Start End Encounter Admission Attending Care Care Encounter Source Date/Time Date/Time Type Type Clinicians Facility Department ID 2022-09-25 [facility] [id number] Common 08:17:01 Daryl [id number] [facility] 2022-06-12 Outpatient Veska, [facility] [id number] 2 Common 08:26:01 Daryl [id number] [facility] 2022-05-08 [facility] [id number] 2 Common 11:09:02 Daryl [id number] [facility] 2021-12-20 Outpatient Veselka, [facility] [id number] 2 Common 10:56:02 Daryl [facility] 2021-09-14 Outpatient FELY Meza [facility] [id number] 2 Common 07:53:01 Daryl [facility] 2023-02-24 2023-02-24 Outpatient GC_GCBZW_Ka PRIV PRIV [id number] [facility] 00:00:00 00:00:00 diyala_S [id number] Medic al 2023-02-14 2023-02-14 Orders Doctor THONG 1.2.840.114 [id number] Univers 00:00:00 00:00:00 Only Unassigned, DEEP 350.1.13.10 ity of [facility] 4.2.7.2.686 Tim as [id number] [address] 2023-01-28 2023-01-28 Orders Doctor THONG 1.2.840.114 [id number] Univers 00:00:00 00:00:00 Only Unassigned, DEEP 350.1.13.10 ity of [facility] 4.2.7.2.686 Tim as [id number] [address] 2022-09-28 2022-09-28 Outpatient Jonnathan CHICAS [facility] [id number] Univers 09:30:00 10:05:37 WILLY ity of [facility] 2022-09-28 2022-09-28 Office Jayson [facility] 1.2.840.114 [id number] Univers 09:30:00 10:05:37 Visit [facility] 350.1.13.10 it y of [place] 4.2.7.2.686 Tim as GERI?BLEA [id number] [address] MEDICAL OFFICE BUILDING 2022-09-28 2022-09-28 Orders Doctor THONG 1.2.840.114 [id number] Univers 00:00:00 00:00:00 Only Unassigned, DEEP 350.1.13.10 ity of [facility] 4.2.7.2.686 Tim as [id number] [address] 2022-09-07 2022-09-07 Patient Felippi, 1.2.840.1 [id number] Methodi 00:00:00 00:00:00 Outreach Ruddy [address]3870.1.[address] 3.430.2.7 Hospit a .3.449705 l .8 2022-09-07 2022-09-07 Patient Jersey, 1.2.840.1 [id number] Methodi 00:00:00 00:00:00 Outreach Ruddy 92496.1.[address] 3.430.2.7 Hospit a .3.014604 l .8 2022-09-04 2022-09-06 [facility] Xu 1.2.840.1 10 [id number] Methodi 00:55:00 17:11:00 Encounter ForceKia 04884.1.1 166 [facility] Josephine C. 3.430.2.7 Hospita .3.325749 l .8 2022-09-04 2022-09-06 [facility] 1.2.840.1 10 [id number] Methodi 00:55:00 17:11:00 Encounter [employer]ia 67179.1.1 166 [facility] Josephine C. 3.430.2.7 Hospita .3.703161 l .8 2022-09-04 2022-09-04 Travel 1.2.840.1 1.2.687.824 6142 [id number] Methodi 00:00:00 00:00:[address] 3.430.2.7 0.2.7.3.698 Ho spita .3.898243 084.8 l .8 2022-09-04 2022-09-04 Travel 1.2.840.1 1.2.921.958 1684 [id number] Methodi 00:00:00 00:00:[address] 3.430.2.7 0.2.7.3.698 Ho spita .3.599788 084.8 l .8 2022-09-02 2022-09-02 Emergency Mckeon, 1.2.840.1 [id number] [id number] Methodi 15:34:00 19:52:[address] 3.430.2.7 Hospit a .3.565261 l .8 2022-09-02 2022-09-02 Emergency Mckeon, 1.2.840.1 [id number] [id number] Methodi 15:34:00 19:52:[address] 3.430.2.7 Hospit a .3.177323 l .8 2022-09-02 2022-09-02 Travel 1.2.840.1 1.2.631.479 1079 [id number] Methodi 00:00:00 00:00:[address] 3.430.2.7 0.2.7.3.698 Ho spita .3.603870 084.8 l .8 2022-09-02 2022-09-02 Travel 1.2.840.1 1.2.819.890 5567 [id number] Methodi 00:00:00 00:00:[address] 3.430.2.7 0.2.7.3.698 Ho spita .3.423298 084.8 l .8 2022-04-12 2022-04-12 Outpatient Jonnathan CHICAS [facility] [id number] Univers 15:00:00 15:57:00 WILLY [facility] 2022-04-12 2022-04-12 [facility] 1.2.840.114 [id number] Univers 15:00:00 15:15:00 Visit Willy [facility] 350.1.13.10 it y of [place] 4.2.7.2.686 Tim as GERI?BLEA [id number] Me [address] MEDICAL OFFICE BUILDING 2022-04-12 2022-04-12 Outpatient Jonnathan CHICAS [facility] [id number] Univers 09:45:00 09:45:00 WILLY angulo [facility] 2021-12-01 2021-12-01 [facility] 1.2.840.114 [id number] Univers 00:00:00 00:00:00 [facility] HEALTH 350.1.13.10 it y of [place] 4.2.7.2.686 Tim as GERI?BLEA [id number] [address] OFFICE [facility] 2021-07-23 2021-07-23 [facility] 1.2.840.114 [id number] Univers 00:00:00 00:00:00 Daryl HEALTH 350.1.13.10 it y of [place] 4.2.7.2.686 Tim as GERI?BLEA [id number] [address] 2021-07-19 2021-07-19 [facility] 1.2.840.114 [id number] Univers 00:00:00 00:00:00 [facility] 350.1.13.10 it y of [place] 4.2.7.2.686 Tim as GERI?BLEA [phone] [address] 2021-06-05 2021-06-05 [facility] 1.2.840.114 [id number] Univers 00:00:00 00:00:00 [facility] 350.1.13.10 it y of [place] 4.2.7.2.686 Tim as PROFESSIO [id number] [address] ONE 2021-03-31 2021-03-31 [facility] 1.2.840.114 [id number] Univers 00:00:00 00:00:00 [facility] HEALTH 350.1.13.10 it y of [place] 4.2.7.2.686 Tim as GERI?BLEA [id number] [address] OFFICE [facility] 2020-12-01 2020-12-01 [facility] [id number] Univers 10:45:00 10:45:00 DARYL [facility] 2020-12-01 2020-12-01 Outpatient Jonnathan MEZA [facility] [id number] Univers 08:30:00 08:30:00 DARYL [facility] 2020-07-16 2020-07-16 Outpatient [facility] [id number] Univers 14:45:00 14:45:00 [facility] 2020-06-25 2020-06-25 Outpatient [facility] [id number] Univers 14:10:00 14:10:00 [facility] 2020-06-06 2020-06-06 Outpatient Jonnathan CHICAS [facility] [id number] Univers 16:00:00 16:00:00 [facility] 2020-04-13 2020-04-13 Outpatient Jonnathan WRIGHT [facility] [id number] Univers 14:30:00 14:30:00 ROMINA [facility] 2020-03-21 2020-03-21 Outpatient Jonnathan MEZA [facility] [id number] Univers 16:00:00 16:00:00 DARYL [facility] 2020-03-07 2020-03-07 Outpatient Jonnathan MEZA [facility] [id number] Univers 16:00:00 16:00:00 [facility] 2020-03-03 2020-03-03 Outpatient Sydney HER [facility] MED 750 0 MHBL 03:26:00 13:25:00 , ANANT 2020-02-16 2020-02-16 Outpatient Jonnathan BAE [facility] [id number] Univers 18:00:00 18:00:00 SONIA [facility] 2019-12-22 2019-12-22 [facility] [id number] Univers 13:15:00 13:15:00 WILLY [facility] 2019-07-21 2019-07-21 Outpatient Jonnathan MEZA [facility] [id number] Univers 08:15:00 08:15:00 [facility] Results Test Description Test Time Test Comments Results Result Comments Source ECG 12 lead 2022-09-04 21:57:44 Test Item Value Reference Range Interpretation Comme nts Ventricular rate (test code = 253) 87 Atrial rate (test code = 255) 87 WA interval (test code = 266) 170 QRSD interval (test code = 260) 68 QT interval (test code = 264) 334 QTC interval (test code = 265) 401 P axis 1 (test code = 267) 32 QRS axis 1 (test code = 268) -16 T wave axis (test code = 270) 15 EKG impression (test code = 273) Normal sinus rhythm-Anteroseptal i nfarct , age undetermined-Abnormal ECG-In automated comparison with ECG of 02-SEP-2022 15:34,-Anteroseptal infarct is now present- [facility] 12 [id number] 21:57:44 Test Item Value Reference Range Interpretation Comments Ventricular rate (test 87 code = 253) Atrial rate (test code 87 = 255) WA interval (test code 170 = 266) QRSD interval (test 68 code = 260) QT interval (test code 334 = 264) QTC interval (test code 401 = 265) P axis 1 (test code = 32 267) QRS axis 1 (test code = -16 268) T wave axis (test code 15 = 270) EKG impression (test Normal sinus code = 273) rhythm-Anteroseptal infarct , age undetermined-Abnormal ECG-In automated comparison with ECG of 02-SEP-2022 15:34,-Anteroseptal infarct is now present[facility] [Presence] in Respiratory specimen by EBONIE with probe [id number] 14:14:03 Test Item Value Reference Range Interpretation Comments SARS-CoV-2 (COVID-19) RNA Not detected [Presence] in Respiratory specimen by EBONIE with probe detection (test code = 34378-0) Whether patient is employed in a Unknown healthcare setting (test code = 56146-1) Whether the patient has symptoms Unknown related to condition of interest (test code = 12495-2) Whether the patient was Unknown hospitalized for condition of interest (test code = 79783-1) Whether the patient was admitted Unknown to intensive care unit (ICU) for condition of interest (test code = 47511-2) Whether patient resides in a Unknown congregate care setting (test code = 60864-2) status (test code = Unknown 23156-3) Date and time of symptom onset Unknown (test code = 87819-2) [facility] [id number] 23:15:00 Test Item Value Reference Range Interpretation Comments Urine culture (test SEE COMMENT Bacteriu leighton screen code = 4833259) negative. [facility] [id number] 23:15:00 Test Item Value Reference Range Interpretation Comments Urine culture (test SEE COMMENT Bacteriu leighton screen code = 3536490) negative. [facility]
[2023-03-13] MEDS: MIDAZOLAM HCL 2 MG/2 ML INJ ONE ×2 (12:15→12:21)
[2023-03-13 12:55] LABS: Hematocrit 34.5 % (36.0-45.0)
[2023-03-13 13:33] VITALS: O2SAT 95
[2023-03-13 13:34] VITALS: BMI 34.0
[2023-03-13] MEDS: HYDROCODONE/APAP 7.5/325 MG TAB PO PRN ×2 (16:00→21:12)
--- NOTE | 2023-03-13 17:29 | EKG ---
Test Date: 2023-03-11 Test Time: 14:15:19 Front Office Director: MONTEZ MEASUREMENT RESULTS: Intervals: Rate: 54 IN: 184 QRSD: 90 QT: 430 QTc: 407 [place]: P: 50 IN: 184 QRS: 53 T: 43 INTERPRETIVE STATEMENTS: Sinus bradycardia Otherwise normal ECG Compared to ECG 07/01/2017 11:15:06 Sinus rhythm no longer present Electronically Signed On 03-13-23 17:23:09 [employer] by Garland Charles
[2023-03-13] MEDS: CEFAZOLIN SODIUM 2 GM in NA CHLORIDE 0.9% 100 ML IVPB SCH (17:37)
[2023-03-13] MEDS: MORPHINE 2 MG/ML SYR IV PRN (18:34)
--- NOTE | 2023-03-13 20:04 | P.OP ---
Preoperative diagnosis: right knee osteoarthritis Postoperative diagnosis: same Primary procedure: right total knee arthroplasty Anesthesia: general Estimated blood loss: 50 cc Specimen: right knee bone remnants Findings: see dictation Operative Technique: Indication For Procedure: Latoya is a 53 year-old female presenting to my clinic with signs, symptoms and x-ray findings consistent with severe right knee osteoarthritis. I discussed with the patient at length risks and benefits associated with operative and nonoperative treatment. She had failed conservative treatment measures and had significant difficulties with ADLs secondary to her pain. We discussed operative treatment and elected to proceed with right total knee arthroplasty. She expressed understanding and elected to proceed with operative treatment. Description Of Procedure: After informed consent was obtained, the patient was identified in the preoperative holding area. The right lower extremity was ma rked. The patient was then taken to the PACU where she underwent a right lower extremity adductor canal block performed by Anesthesia. She was then taken to the operating room, transferred to the operating table in supine fashion, and placed under general anesthesia. The right lower extremity was then prepped and draped in usual sterile fashion. A time-out was initiated. The correct patient and procedure were confirmed and identified. The patient did receive her preoperative prophylactic antibiotics. The right lower extremity was then exsanguinated and tourniquet was inflated to 300 mmHg. Approximately 15 cm longitudinal incision was made centered over the anterior aspect of the right knee. Dissection was then taken to the extensor mechanism and a medial parapatellar arthrotomy was performed. The patella was everted and dislocated laterally and the knee was flexed in the fat pad. Medial and lateral meniscus and ACL were all excised exposing the distal femur. Excess hypertrophic synovium was also excised within the suprapatellar pouch. The patient had an MRI of her right knee preoperatively for surgical planning and creation of cutting blocks. The cutting block was then placed over the distal femur and pins were then placed. The distal femoral cutting block was then placed over the pins. An guanakito wing was then used to ensure proper depth cut and the distal femur was then cut. The chamfer cutting guide was then placed over the distal end of the femur. Anterior, posterior cuts as well as anterior and posterior chamfer cuts were then made again confirming proper depth of the cut using an [place] wing. Excess bone remnants were then sent to pathology for further evaluation. Next, attention was taken to the proximal tibia. A tibial jig and tibial cutting block was then placed on proximal aspect of the right tibia and locked into position. Pins were then placed and alignment guide was then used to confirm proper alignment of the cut and then coronal and sagittal planes. Once this was confirmed, the cutting jig was placed over the pins and the proximal tibia was cut. Sizing trays were then selected and size 10 mm spacer was used and there was good overall balance in flexion and extension. Next, the trial implants were then placed using the size 6 standard CR femur and a size D tibia and an 10 mm CR poly. There was overall good range of motion and good stability. The trial implants were then removed. The wound was then irrigated thoroughly with normal saline and the knee was then injected with 20 cc of 0.5% Marcaine both in the posterior capsule and medial and lateral gutters as well as quadriceps tendon and periosteum. The tibia was then punched. The femur was drilled. The cement was then prepared on the back table. Cement was then placed first on the tibial surface followed by size D tibia. Excess cement was removed with [place] elevators. Size 6 standard CR femur was then placed on the distal femur after cement was placed on the distal femur. Excess cement was then removed and a size 10 mm CR trial poly was then placed. The knee was held in extension as the cement hardened. Undersurface of the patella was prepared debriding osteophytes using rongeurs as well as osteophytes.. Cement was placed on the undersurface of the patella after it was cut and a size 29 patella was placed. Once the cement was hardened, the knee was ranged, there was good overall stability both in flexion, extension and as well as stability with varus and valgus stresses. Trial poly was then removed and a size 10 mm CR poly was then placed and locked into position. The knee was then ranged again. There was good overall range of motion both for flexion and extension with good stability. The wound was then irrigated again thoroughly with normal saline using pulse lavage. Tourniquet was let down. Hemostasis was achieved using Bovie electrocautery. Extensor mechanism was then approximated using a #1 Vicryl both in interrupted and running fashion. The fascia was then approximated using 0 Vicryl. Subcutaneous tissue was approximated with a 2-0 Vicryl. Skin was approximated using katherin. Sterile dressings were applied. The patient was awakened and transferred back in stable condition Complications: None Implants: Biomet Lexx Persona 6 CR femur, D tibia, 29 patella, 10 CR poly Fluids & blood products: per anesthesia record; TT: 84 mins @ 300 mmHg Transferred to: Recovery Room Condition: Good
[2023-03-14] MEDS: CEFAZOLIN SODIUM 2 GM in NA CHLORIDE 0.9% 100 ML IVPB SCH ×2 (01:05→08:18)
[2023-03-14] MEDS: MORPHINE 2 MG/ML SYR IV PRN (01:17)
[2023-03-14 01:56] LABS: Hematocrit 35.4 % (36.0-45.0)
[2023-03-14] MEDS: HYDROCODONE/APAP 7.5/325 MG TAB PO PRN ×2 (01:56→08:19)
[2023-03-14] MEDS ORDERED: MORPHINE 4 MG/ML SYR IV ONE (02:46)
[2023-03-14] MEDS ORDERED: ENOXAPARIN 30 MG/0.3 ML SQ SCH (06:00)
[2023-03-14] MEDS ORDERED: AMLODIPINE 5 MG TAB PO SCH (09:00)
[2023-03-14] MEDS ORDERED: HYDROCODONE/APAP 7.5/325 MG TAB PO ONE (11:44)
--- NOTE | 2023-03-14 12:38 | P.DS ---
Admission Date: 03/13/23 Discharge Date: 03/14/23 Disposition: ROUTINE DISCHARGE Discharge Condition: GOOD Reason for Admission: Right total knee arthroplasty Consultations: None Procedures: Right total knee arthroplasty on March 13, 2023 Brief History of Present Illness: Latoya is a 53-year-old female that is admitted postoperatively after right total knee arthroplasty. Hospital Course: Patient underwent her surgery on March 13, 2023 without complication. She was in medical floor in stable condition. Physical therapy was consulted to aid with mobilization. She was started on Lovenox in hospital for DVT prophylaxis. She was discharge on March 14, 2023 in stable condition. She will continue with Xarelto for DVT prophylaxis postoperatively. She will work with outpatient physical therapy after discharge. She will follow-up in my clinic in 2 weeks for staple removal. Vital Signs/Physical Exam: Temp Pulse Resp BP Pulse Ox 97.4 F 63 16 129/71 96 03/14/23 08:00 03/14/23 08:00 03/14/23 11:49 03/14/23 08:00 03/14/23 11:49 Laboratory Data at Discharge: WBC 6.10 thou/uL (4.3-10.9) 03/11/23 13:11 Hgb 11.4 g/dL (12.0-15.0) L 03/14/23 01:36 Hct 35.4 % (36.0-45.0) L 03/14/23 01:36 Plt Count 219 thou/uL (152-406) 03/11/23 13:11 PT 11.1 SECONDS (9.5-12.5) 03/11/23 13:11 INR 1.01 03/11/23 13:11 APTT 35.8 SECONDS (24.3-36.9) 03/11/23 13:11 Sodium 137 mEq/L (136-145) 03/11/23 13:11 Potassium 4.1 mEq/L (3.5-5.1) 03/11/23 13:11 BUN 10 mg/dL (7-18) 03/11/23 13:11 Creatinine 1.08 mg/dL (0.55-1.02) H 03/11/23 13:11 Glucose 91 mg/dL (74-106) 03/11/23 13:11 Home Medications: Tramadol HCl [Ultram] 50 mg PO 1X 03/11/23 Amlodipine [Norvasc*] 5 mg PO DAILY 03/13/23 Hydrocodone 7.5/APAP 325 [Alexis 7.5/325 mg*] 1 tab PO Q4H PRN tab 03/14/23 Physician Discharge Instructions: Keep dressing clean, dry and intact. Begin Xarelto tomorrow Saturday, March 15, 2023 with breakfast and take once daily. Use bilateral thigh-high KYLIE hose to aid with swelling. Follow-up with Dr. Kilpatrick in 2 weeks for wound check and staple removal. Diet: Regular Activity: Weight bearing as tolerated Followup: Nithin Kilpatrick MD [ACTIVE - CAN ADMIT] - 1-2 Weeks Ilia Dahl MD [Primary Care Provider] -
[2023-03-14 14:43] VITALS: TEMP 97.6
[2023-03-14 17:03] VITALS: BP 116/59
== END 2023-03-14 16:58 | disposition home or self-care (01) ==
LOC: OR 06:03 → 2ND 11:48
PROVIDERS: ADMIT Orthopaedic Surgery Sports Medicine; ATTEND Orthopaedic Surgery Sports Medicine
PROC: 0SRC0J9 Replacement of Right Knee Joint with Synthetic Substitute, Cemented, Open Approach (ICD-10-PCS; principal; 2023-03-13 08:00)
DX: M17.11 Unilateral primary osteoarthritis, right knee (principal)
CPT/HCPCS: 93005; 85025; 80048; 36415 ×3; 85610; 88304; 88311; 85730; 85018 ×2; 85014 ×2; 71046; 73560; 97110; 97116 ×3; 97139; 97162; 97530; 94010; 27447; C1776 ×3; J3475; A4216 ×2; J2704; J0171; J2001; J1650; J2250; J3010 ×2; J2270 ×2; J1170; G0378 ×3; J7030; G0379